=== PATIENT | female | born 1975 | race Caucasian/White ===

== ENCOUNTER 2017-04-07 14:50 | Emergency (ER) | payer OTHER, MEDICAID ==
[2017-04-07] MEDS ORDERED: IOHEXOL 350 MG/ML 10 ML VIAL (for RAD DIAG) IVCONTRAST ONE (14:51)
[2017-04-07 14:59] VITALS: BP 114/63; PULSE 92; RESP 20; TEMP 99
[2017-04-07] MEDS ORDERED: TOPI50TA7 PO (15:13)
[2017-04-07] MEDS ORDERED: CLINDAMYCIN INJ 600 MG in SODIUM CHLORIDE 0.9% INJ 100 ML IV ONE (15:45)
[2017-04-07] MEDS ORDERED: DEXAMETHASONE SOD PHOS 4 MG/ML VIAL IV PUSH ONE (15:45)
[2017-04-07] MEDS ORDERED: SODIUM CHLORIDE 0.9% FLUSH 10 ML FLUSH IVF PRN (15:45)
--- NOTE | 2017-04-07 15:50 | PD ---
HPI Chief Complaint: ENT Complaint Time Seen by Provider: 15:32 Travel History International Travel<30 days: No Contact w/Intl Traveler<30days: No Traveled to known affect area: No History of Present Illness HPI 41-year-old female here with "mass in my throat". Patient reports symptoms started several months ago on the left side where she felt that she had a mass. The area was tender and caused pain with swallowing. Over the last 3 days she reports the area has become increasingly more painful and swollen. She was seen in an urgent care clinic 2 days ago where she had a negative strep screen and they put her on steroids. The area has continued to become increasingly more painful and swollen causing pain with swallowing prompting her visit today. She is able to eat and drink and swallow her secretions. She has noticed slight change in her voice. She denies fever or chills. She denies any other symptom. PFSH Past Medical History Medical History: Denies Significant Hx Diminished Hearing: No Migraines: Yes Tetanus Vaccination: Unknown Influenza Vaccination: Yes ?: Not LMP: 11 18 17 Past Surgical History Abdominal Surgery: Yes () Section: Yes Other Surgery: Yes (hernia as child) Social History Alcohol Use: No Tobacco Use: No Substance Use: No Allergies-Medications (Allergen,Severity, Reaction): Coded Allergies: Penicillins (Verified Adverse Reaction, Unknown, Tachycardia, 04/07/17) As child; Father told her that her "heart raced" Reported Meds & Prescriptions Reported Meds & Active Scripts Active Prednisone 20 Mg Tab 20 Mg PO BID 4 Days Clindamycin (Clindamycin HCl) 300 Mg Cap 300 Mg PO Q6H 10 Days Reported Topiramate 50 Mg Tab 50 Mg PO BID Review of Systems Except as stated in HPI: all other systems reviewed are Neg General / Constitutional: No: Fever HENT: Positive: Sore Throat Physical Exam Narrative GENERAL: Alert well-appearing female. SKIN: Warm and dry. HEAD: Normocephalic. EYES: No scleral icterus. No injection or drainage. MOUTH: Notable swelling and erythema to the upper left soft palate lateral to the uvula. The uvula is midline. She has bilateral mild tonsillar hypertrophy. No exudate. Airways patent NECK: Supple, trachea midline. + LEFT SUBMANDIBULAR lymphadenopathy. CARDIOVASCULAR: Regular rate and rhythm without murmurs, gallops, or rubs. RESPIRATORY: Breath sounds equal bilaterally. No accessory muscle use. GASTROINTESTINAL: Abdomen soft, non-tender, nondistended. MUSCULOSKELETAL: No cyanosis, or edema. BACK: Nontender without obvious deformity. No CVA tenderness. Data Data Last Documented VS Vital Signs Date Time Temp Pulse Resp B/P (MAP) Pulse Ox O2 Delivery O2 Flow Rate FiO2 04/07/17 14:59 99.0 92 20 114/63 (80) Orders Orders Basic Metabolic Panel (Bmp) (04/07/17 15:36) Complete Blood Count With Diff (04/07/17 15:36) Monoscreen (04/07/17 15:36) Group A Rapid Strep Screen (04/07/17 15:36) Ct Soft Tiss Neck W Iv Cont (04/07/17 15:36) Iv Access Insert/Monitor (04/07/17 15:36) Dexamethasone Inj (Decadron Inj) (04/07/17 15:45) Clindamycin Inj (Cleocin Inj) (04/07/17 15:45) Sodium Chloride 0.9% Flush (Ns Flush) (04/07/17 15:45) Ed Urine Pregnancytest Poc (04/07/17 15:36) Strep Culture (Group A) (04/07/17 15:45) Iohexol 350 Inj (Omnipaque 350 Inj) (04/07/17 14:51) Potassium Chloride (Kcl) (04/07/17 18:00) Ed Discharge Order (04/07/17 17:54) Labs Laboratory Tests Test 04/07/17 15:45 White Blood Count 8.6 TH/MM3 Red Blood Count 4.43 MIL/MM3 Hemoglobin 12.3 GM/DL Hematocrit 36.3 % Mean Corpuscular Volume 81.9 FL Mean Corpuscular Hemoglobin 27.6 PG Mean Corpuscular Hemoglobin Concent 33.7 % Red Cell Distribution Width 13.2 % Platelet Count 182 TH/MM3 Mean Platelet Volume 9.4 FL Neutrophils (%) (Auto) 68.9 % Lymphocytes (%) (Auto) 25.2 % Monocytes (%) (Auto) 4.3 % Eosinophils (%) (Auto) 1.2 % Basophils (%) (Auto) 0.4 % Neutrophils # (Auto) 5.9 TH/MM3 Lymphocytes # (Auto) 2.2 TH/MM3 Monocytes # (Auto) 0.4 TH/MM3 Eosinophils # (Auto) 0.1 TH/MM3 Basophils # (Auto) 0.0 TH/MM3 CBC Comment DIFF FINAL Differential Comment Blood Urea Nitrogen 7 MG/DL Creatinine 0.67 MG/DL Random Glucose 94 MG/DL Calcium Level 8.0 MG/DL Sodium Level 141 MEQ/L Potassium Level 3.3 MEQ/L Chloride Level 113 MEQ/L Carbon Dioxide Level 18.3 MEQ/L Anion Gap 10 MEQ/L Estimat Glomerular Filtration Rate 96 ML/MIN Monoscreen NEG MDM Medical Decision Making Medical Screen Exam Complete: Yes Emergency Medical Condition: Yes Interpretation(s) CBC: is unremarkable BMP: Mild hypokalemia potassium 3.3, orally replaced in the ED Strep screen/monoscreen: Negative CT neck soft tissue: 21 time 24 mm area of low density and associated induration of the posterior oropharynx likely left tonsillar abscess Differential Diagnosis Peritonsillar abscess, mononucleosis, Pharyngitis Narrative Course 41 year old female with sore throat and sensation of a mass to the left side of her throat 2 months. Over the last 3 days the swelling and pain has intensified. She was seen at a local urgent care clinic and put on a steroid taper. Her symptoms persisted bringing her here. She has notable swelling and erythema to the left upper soft palate. Patient is tolerating secretions able to eat and drink without difficulty. Labs reviewed. CT scan of soft tissue reveal at 21x 24 mm area of low density associated induration of the posterior oropharynx likely a left tonsillar abscess. This was discussed with my attending physician Dr. Simmons and the patient. Patient's airway is patent she is nontoxic-appearing. She is able to eat, drink, speak without difficulty. She will be discharged home with prescription for clindamycin and prednisone and instructed to return tomorrow afternoon for recheck. Patient agrees to this plan. Diagnosis Primary Impression: Tonsillar abscess Referrals: Rufino Benedict MD Additional Instructions: Return tomorrow for recheck. Take the antibiotics and steroids as directed. Return prior. Developed new or worsening symptoms which would include increasing pain, high fevers, difficulty swallowing, difficulty breathing. Scripts Prednisone (Prednisone) 20 Mg Tab 20 MG PO BID for 4 Days, #8 TAB 0 Refills Prov: Selin Machado 04/07/17 Clindamycin (Clindamycin) 300 Mg Cap 300 MG PO Q6H for Infection for 10 Days, #40 CAP 0 Refills Prov: Selin Machado 04/07/17 Disposition: 01 DISCHARGE HOME Condition: Stable Selin Machado Apr 07, 2017 15:50
[2017-04-07 16:03] LABS: AUTOMATED NEUTROPHIL # 5.9 TH/MM3 (1.8-7.7); BASOPHIL % 0.4 % (0.0-2.0); EOSINOPHIL # 0.1 TH/MM3 (0-0.4); EOSINOPHIL % 1.2 % (0.0-4.0); HEMATOCRIT 36.3 % (35.0-46.0); HEMO FLAGS DIFF FINAL; LYMPH % 25.2 % (9.0-44.0); LYMPHOCYTE # 2.2 TH/MM3 (1.0-4.8); MEAN CELL VOLUME 81.9 FL (80.0-100.0); MEAN CORPUSCULAR HEMOGLOBIN 27.6 PG (27.0-34.0); MEAN CORPUSCULAR HGB CONC 33.7 % (32.0-36.0); MONO % 4.3 % (0.0-8.0); NEUT % 68.9 % (16.0-70.0); PLATELET COUNT 182 TH/MM3 (150-450); RED BLOOD COUNT 4.43 MIL/MM3 (4.00-5.30); RED CELL DISTRIBUTION WIDTH 13.2 % (11.6-17.2); WHITE BLOOD COUNT 8.6 TH/MM3 (4.0-11.0)
[2017-04-07 16:09] LABS: POTASSIUM 3.3 MEQ/L (3.5-5.1)
[2017-04-07 16:12] LABS: BICARBONATE 18.3 MEQ/L (21.0-32.0)
--- NOTE | 2017-04-07 17:36 | RADRPT ---
EXAM DATE/TIME: 04/07/2017 17:02 [facility] COMPARISON: No previous studies available for comparison. INDICATIONS : Left side neck swelling, sore throat, pain with swallowing. IV CONTRAST: 75 cc Omnipaque 350 (iohexol) IV RADIATION DOSE: 13.82 CTDIvol (mGy) MEDICAL HISTORY : None SURGICAL HISTORY : section. ENCOUNTER: Initial ACUITY: 3 days PAIN SCALE: 6/10 LOCATION: Left neck TECHNIQUE: Volumetric scanning of the neck was performed. Using automated exposure control and adjustment of th e mA and/or kV according to patient size, radiation dose was kept as low as reasonably achievable to obtain optimal diagnostic quality images. DICOM format image data is available electronically for r eview and comparison. FINDINGS: Indurated appearing low-density masslike areas seen left side of the hypopharynx at the level of the tongue base. This is most likely an abscess although a necrotic mass would be in the differential. Th e collection is approximately 21 x 24 mm in greatest transaxial dimension. There is no pathologic-appearing adenopathy. No acute bony abnormality demonstrated. Visualized lung apices are clear. CONCLUSION: 21 x 24 mm area of low density and associated induration of the posterior oropharynx likely a left to nsillar abscess. Rodger Polk MD on April 07, 2017 at 17:30 Board Certified Radiologist. This report was verified electronically.
[2017-04-07] MEDS ORDERED: PRED20 PO (17:53)
[2017-04-07] MEDS ORDERED: CLIN300C5 PO (17:53)
[2017-04-07] MEDS ORDERED: POTASSIUM CHLORIDE 20 MEQ CONTROLLED RELEASE TAB PO ONE (18:00)
== END 2017-04-07 18:08 | disposition home or self-care (01) ==
LOC: PHEFT 14:50
DX: J36 Peritonsillar abscess (principal)
CPT/HCPCS: 70491; 80048; 84703; 85025; 86308; 87081; 87880; 96365; 96375; 99285; J1100; Q9967

== ENCOUNTER 2017-04-08 16:30 | Emergency (ER) | payer OTHER, MEDICAID ==
[~2017-04-08] VITALS: Ht 162.6 cm; Wt 72.0 kg
[~2017-04-08 16:30] MED LIST: CLIN300C5 PO; PRED20 PO; TOPI50TA7 PO
[2017-04-08 16:42] VITALS: BP 121/67; PULSE 75; RESP 16; TEMP 98.1; O2SAT 98
--- NOTE | 2017-04-08 16:49 | PD ---
HPI Chief Complaint: Wound/Suture/Staple Re-Check Time Seen by Provider: 16:45 Travel History International Travel<30 days: No Contact w/Intl Traveler<30days: No Traveled to known affect area: No History of Present Illness HPI 41-year-old female diagnosed with tonsillar abscess yesterday presents to the emergency department for reevaluation. Patient states that she has been taking her antibiotics. She states the pain has decreased but still persists. She has not been febrile. Feels that she can swallow better than she did yesterday. She has no other symptoms to report at this time. PFSH Past Medical History Diminished Hearing: No Migraines: Yes Past Surgical History Abdominal Surgery: Yes () Section: Yes Other Surgery: Yes (hernia as child) Social History Alcohol Use: No Tobacco Use: No Substance Use: No Allergies-Medications (Allergen,Severity, Reaction): Coded Allergies: Penicillins (Verified Adverse Reaction, Unknown, Tachycardia, 04/08/17) As child; Father told her that her "heart raced" Reported Meds & Prescriptions Reported Meds & Active Scripts Active Prednisone 20 Mg Tab 20 Mg PO BID 4 Days Clindamycin (Clindamycin HCl) 300 Mg Cap 300 Mg PO Q6H 10 Days Reported Topiramate 50 Mg Tab 50 Mg PO BID Review of Systems Except as stated in HPI: all other systems reviewed are Neg Physical Exam Narrative GENERAL: Well-nourished, well-developed female patient ambulatory no acute distress SKIN: Focused skin assessment warm/dry. HEAD: Normocephalic. EYES: No scleral icterus. No injection or drainage. ENT: Mucosa pink and moist. Erythema and significant edema on the left posterior pharynx.. No uvular edema. No uvular, palatal, or tonsillar deviation. Airway patent. Nasal turbinates appear normal without nasal blood, purulent drainage or septal hematoma. NECK: Supple, trachea midline. Left-sided tonsillar lymphadenopathy. CARDIOVASCULAR: Regular rate and rhythm without murmurs, gallops, or rubs. RESPIRATORY: Breath sounds equal bilaterally. No accessory muscle use. GASTROINTESTINAL: Abdomen soft, non-tender, nondistended. MUSCULOSKELETAL: No cyanosis, or edema. BACK: Nontender without obvious deformity. No CVA tenderness. Data Data Last Documented VS Vital Signs Date Time Temp Pulse Resp B/P (MAP) Pulse Ox O2 Delivery O2 Flow Rate FiO2 04/08/17 16:42 98.1 75 16 121/67 (85) 98 Orders Orders Ed Discharge Order (04/08/17 16:47) MDM Medical Decision Making Medical Screen Exam Complete: Yes Emergency Medical Condition: Yes Medical Record Reviewed: Yes Differential Diagnosis Tonsillar abscess versus cellulitis versus pharyngitis Narrative Course 41-year-old female presents to the emergency department for reevaluation of a tonsillar abscess diagnosed yesterday. Patient appears without distress. She feels as though her symptoms are improving. Her airway is patent and she is handling her secretions. Patient is in coverage to continue antibiotics and medication as prescribed. She agrees to return immediately with any acute worsening of symptoms. Diagnosis Primary Impression: Tonsillar abscess Referrals: Ear / Nose / Throat Specialist Primary Care Physician Patient Instructions: General Instructions, Peritonsillar Abscess (ED) Additional Instructions: Warm salt water gargles Continue antibiotic as prescribed Return immediately to the emergency department with any acute worsening symptoms Med/Other Pt SpecificInfo: No Change to Meds Disposition: 01 DISCHARGE HOME Condition: Stable Kennedi Hernandez Apr 08, 2017 16:48
== END 2017-04-08 17:00 | disposition home or self-care (01) ==
LOC: PHEFT 16:30
DX: J36 Peritonsillar abscess (principal); Z88.0 Allergy status to penicillin; Z79.899 Other long term (current) drug therapy
CPT/HCPCS: 99281